=== PATIENT | female | born 1935 | race Caucasian/White ===

== ENCOUNTER → 2017-11-13 | Outpatient (CLI) | payer OTHER ==
[~2017-11-13] MED LIST: AFRSP NASAL; APIX5TAB PO; BUME2TAB18 PO; CAPE500T14 PO; CARV25TA PO; CLIN150C10 PO; DIAZ5TAB4 PO; DULO60CA63 PO; HYDR-3421 PO; IRBE300T19 PO; LEVO50TA11 PO; MELO-108 PO; NIFE30TA98 PO; PRAV20TA4 PO; ROPI6TAB2 PO; UBID100C10 PO
[2017-11-13 17:04] LABS: CREATININE 0.9 mg/dL (0.5-1.5)
== END | disposition home or self-care (01) ==
LOC: LAB 16:22
PROVIDERS: ATTEND Internal Medicine
DX: I63.9 Cerebral infarction, unspecified (principal); R41.82 Altered mental status, unspecified
CPT/HCPCS: 36415; 82565; 84520

== ENCOUNTER → 2017-11-14 | Outpatient (CLI) | payer OTHER ==
[~2017-11-14] MED LIST changes: +GADOBENATE DIMEGLUMINE 20 ML IV ONE
== END | disposition home or self-care (01) ==
LOC: RAH 09:47
PROVIDERS: ATTEND Internal Medicine
DX: I63.9 Cerebral infarction, unspecified (principal); G31.9 Degenerative disease of nervous system, unspecified; R41.82 Altered mental status, unspecified; Z86.73 Personal history of transient ischemic attack (TIA), and cerebral infarction without residual deficits
CPT/HCPCS: 70553; A9577

== ENCOUNTER 2018-01-14 18:02 | Emergency (ER) | payer OTHER ==
[~2018-01-14 18:02] MED LIST changes: +ETOMIDATE 2 MG/ML 10 ML VIAL IVP ONE; -GADOBENATE DIMEGLUMINE 20 ML IV ONE; +ROCURONIUM BROMIDE 10MG/1ML 5ML VL IV ONE
[2018-01-14] MEDS ORDERED: IOPAMIDOL-370 100 ML VIAL IV ONE (18:45)
[2018-01-14 18:49] LABS: MEAN CORPUSCULAR HEMOGLOBIN 29.6 pg (27.0-33.0)
[2018-01-14 18:51] LABS: CREATININE 1.2 mg/dL (0.5-1.5); POTASSIUM 5.1 mmol/L (3.5-5.1)
[2018-01-14 18:57] LABS: HEMATOCRIT 21.8 % (36-48); MEAN CORPUSCULAR HGB CONC 34.3 g/dL (32.0-36.0); MEAN CORPUSCULAR VOLUME 86.4 fL (79-99); NUCLEATED RED BLOOD CELLS 1.5 % (0.0-0.19); RED BLOOD CELL COUNT(AUTO) 2.52 MIL/uL (4.00-5.50); RED CELL DISTRIBUTION WIDTH 16.2 % (11.0-15.5)
[2018-01-14 19:04] LABS: BILIRUBIN,DIRECT 0.2 mg/dL (0.0-0.3); CREATINE KINASE MB 0.6 ng/mL (0.5-3.6); TOTAL PROTEIN, SERUM 6.6 g/dL (6.0-8.3)
[2018-01-14 19:08] LABS: PLATELET COUNT (AUTO) 3 K/uL (130-400); WHITE BLOOD COUNT (AUTO) 0.4 K/uL (4.8-10.8)
[2018-01-14 20:24] LABS: LYMPHOCYTES % (MANUAL) 86 % (22-44); MAN.DIFF COMMENT-IMPRESSION MANUAL DIFFERENTIAL; MONOCYTES % (MANUAL) 6 % (2-9); REACTIVE LYMPHOCYTES 1 % (0-0); SEGMENTED NEUTROPHILS % 7 % (40-70)
[2018-01-14 20:25] LABS: PLATELET MORPHOLOGY COMMENT MARKED DECREASED
[2018-01-14] MEDS ORDERED: PROPOFOL 1000 MG/100 ML 100 ML IV ONE (21:00)
[2018-01-14 21:05] LABS: APPEARANCE,URINE CLEAR (CLEAR); BILIRUBIN,URINE NEGATIVE (NEGATIVE); COLOR,URINE YELLOW (YELLOW); GLUCOSE, URINE (UA) NEGATIVE (NEGATIVE); KETONES,URINE NEGATIVE (NEGATIVE); LEUKOCYTE ESTERASE ,URINE NEGATIVE (NEGATIVE); NITRATE,URINE NEGATIVE (NEGATIVE); OCCULT BLOOD,URINE SMALL (NEGATIVE); PH,URINE 5.5 (5.0-8.0); PROTEIN,URINE NEGATIVE (NEGATIVE)
[2018-01-14 21:07] LABS: INR 1.03 (0.85-1.15); PARTIAL THROMBOPLASTIN TIME 32.4 SEC (26.3-35.5); PROTHROMBIN TIME 10.8 SEC (9.6-11.6)
[2018-01-14 21:12] LABS: AMPHET/METH SCREEN,URINE NEGATIVE (NEGATIVE); BARBITURATE SCREEN, URINE NEGATIVE (NEGATIVE); BENZODIAZEPINES SCREEN,URINE POSITIVE (NEGATIVE); CANNABINOID SCREEN,URINE NEGATIVE (NEGATIVE); COCAINE SCREEN,URINE NEGATIVE (NEGATIVE); OPIATE SCREEN,URINE NEGATIVE (NEGATIVE); PHENCYCLIDINE SCREEN,URINE NEGATIVE (NEGATIVE)
[2018-01-14 21:51] LABS: SQUAMOUS EPITHELIAL CELL,UR Rare /LPF (0-2); WBC,URINE 0-1 /HPF (0-1)
[2018-01-14 21:52] LABS: BACTERIA,URINE Few /HPF (None Seen)
== END 2018-01-14 21:51 | disposition expired ==
LOC: EDH 18:02
DX: S06.6X0A Traumatic subarachnoid hemorrhage without loss of consciousness, initial encounter (principal); I46.9 Cardiac arrest, cause unspecified; D69.6 Thrombocytopenia, unspecified; R57.1 Hypovolemic shock; C76.2 Malignant neoplasm of abdomen; I25.10 Atherosclerotic heart disease of native coronary artery without angina pectoris; E11.9 Type 2 diabetes mellitus without complications; E78.5 Hyperlipidemia, unspecified; I10 Essential (primary) hypertension; Z88.0 Allergy status to penicillin; Z88.8 Allergy status to other drugs, medicaments and biological substances; Z95.1 Presence of aortocoronary bypass graft; W18.39XA Other fall on same level, initial encounter; Y93.89 Activity, other specified; Y92.090 Kitchen in other non-institutional residence as the place of occurrence of the external cause; Y99.8 Other external cause status; R55 Syncope and collapse
CPT/HCPCS: 31500; 36415; 70450; 70486; 71045; 71260; 72125; 74177; 80048; 80076; 80305; 81001; 82550; 82553; 84484; 85007; 85025; 85060; 85610; 85730; 86850; 86900; 86901; 86922 ×2; 88313; 92950; 93005; 94002; 96365; 96375; 99285; J2704; J3490 ×2; P9016 ×3; Q9967